=== PATIENT | female | born 1960 | race Asian ===

== ENCOUNTER 2023-09-11 13:20 | Outpatient (CLI) | payer OTHER | END 2023-09-11 18:31 | disposition home or self-care (01) | LOC: SRD 13:20 | PROVIDERS: ATTEND Family Medicine | DX: M47.816 Spondylosis without myelopathy or radiculopathy, lumbar region (principal); M25.78 Osteophyte, vertebrae; M48.061 Spinal stenosis, lumbar region without neurogenic claudication; M48.07 Spinal stenosis, lumbosacral region; M25.551 Pain in right hip | CPT/HCPCS: 72110; 73502 ==

== ENCOUNTER 2023-09-15 16:06 | Outpatient (CLI) | payer OTHER | END 2023-09-15 18:08 | disposition home or self-care (01) | LOC: SMA 16:06 | PROVIDERS: ATTEND Family Medicine | DX: Z12.31 Encounter for screening mammogram for malignant neoplasm of breast (principal) | CPT/HCPCS: 77067 ==